=== PATIENT | male | born 1985 | race Caucasian/White ===

== ENCOUNTER 2021-08-17 22:27 | Emergency (ER) | payer OTHER ==
[~2021-08-17 22:27] MED LIST: AUGMENTIN 875-1 EACH PO; KEFLEX250 MG PO; KEFLEX500 MG PO; LODINE400 MG PO; MUCINEX100 MG PO; NAPROXEN500 MG PO; NORCO 5-325 TA1 EAC1 PO; NORCO 5-325 TA1 EACH PO
[2021-08-17] MEDS ORDERED: VIBRAMYCIN100 MG PO (23:59)
== END 2021-08-18 00:20 | disposition home or self-care (01) ==
LOC: FER 22:27
DX: S61.227A Laceration with foreign body of left little finger without damage to nail, initial encounter (principal); W29.3XXA Contact with powered garden and outdoor hand tools and machinery, initial encounter; Y92.009 Unspecified place in unspecified non-institutional (private) residence as the place of occurrence of the external cause
CPT/HCPCS: 73140